=== PATIENT | female | born 1995 | race Two or more races ===

== ENCOUNTER 2018-05-15 16:07 | Emergency (ER) | payer SELFPAY ==
[~2018-05-15] VITALS: Ht 160 cm; Wt 77.6 kg
--- NOTE | 2018-05-15 17:26 | PHYS DOC ---
Past Medical History Past Medical History: No Pertinent History Past Surgical History: No Surgical History Alcohol Use: None Drug Use: None Adult General Chief Complaint Chief Complaint: VAGINAL BLEEDING HPI HPI Patient is a 22 year old female who presents to the ER with complaints of vaginal bleeding for the last hour and a half. She states she is currently , , her LMP was 02/15/18. Pt is unsure of when her due date is, she has not had an ultrasound by her OB yet. She had her first OB appointment last week. She denies any fever, nausea, vomiting, abdominal pain, back pain, dysuria, hematuria, or irregular vaginal discharge prior to the onset of bleeding. She denies any pain at this time. Review of Systems Review of Systems Constitutional: Denies fever or chills [] GI: Denies abdominal pain, nausea, vomiting, or diarrhea [] : Denies dysuria or hematuria [] Musculoskeletal: Denies back pain or joint pain [] Integument: Denies rash or skin lesions [] Neurologic: Denies headache, focal weakness or sensory changes [] Endocrine: Denies polyuria or polydipsia [] All other systems were reviewed and found to be within normal limits, except as documented in this note. Allergies Allergies Allergies Coded Allergies Type Severity Reaction Last Updated Verified Penicillins Allergy Intermediate HIVES 05/15/18 Yes Physical Exam Physical Exam Constitutional: Well developed, well nourished, no acute distress, non-toxic appearance. [] HENT: Normocephalic, atraumatic, bilateral external ears normal, oropharynx moist, no oral exudates, nose normal. [] Eyes: PERRLA, conjunctiva normal, no discharge. [] Pelvic Exam: Configuration Consultant present Fauna YULIYA Abdomen: Nontender External Genitalia: Normal Skin Speculum: Normal vaginal mucosa; small amount of bloody cervical discharge , no clots, OS closed Skin: Warm, dry, no erythema, no rash. [] Extremities: No cyanosis, no clubbing, ROM intact, no edema. [] Neurologic: Alert and oriented X 3, normal motor function, normal sensory function, no focal deficits noted. [] Psychologic: Affect normal, judgement normal, mood normal. [] Current Patient Data Vital Signs Vital Signs Date Time Temp Pulse Resp B/P (MAP) Pulse Ox O2 Delivery O2 Flow Rate FiO2 05/15/18 21:27 102 33 119/65 (83) 100 Room Air 05/15/18 16:20 98.4 98.4 Lab Values Laboratory Tests Test 05/15/18 17:01 Urine Collection Type Unknown Urine Color Yellow Urine Clarity Cloudy Urine pH 5.5 Urine Specific Critz 1.025 Urine Protein 30 mg/dL (NEG-TRACE) Urine Glucose (UA) Negative mg/dL (NEG) Urine Ketones (Stick) 40 mg/dL (NEG) Urine Blood Large (NEG) Urine Nitrite Negative (NEG) Urine Bilirubin Negative (NEG) Urine Urobilinogen Dipstick 0.2 mg/dL (0.2 mg/dL) Urine Leukocyte Esterase Moderate (NEG) Urine RBC Tntc /HPF (0-2) Urine WBC 5-10 /HPF (0-4) Urine Squamous Epithelial Cells Mod /LPF Urine Bacteria Moderate /HPF (0-FEW) EKG EKG [] Radiology/Procedures Radiology/Procedures PROCEDURE: PREG 1ST TRIMESTER CLINICAL HISTORY: VAGINAL BLEEDING X'S 1 DAY. PT DENIES HAVING ANY PELVIC/ABDOMINAL PAIN. LMP-02/15/2018. G1,P0. COMPARISON: None available. TECHNIQUE: transabdominal sonography was performed using grayscale and B-mode imaging FINDINGS: An intrauterine gestational sac is present. An embryo is identified .Cardiac activity is visualized and documented at a normal rate (100-180 beats per minute). There is no subchorionic fluid collection. Based on a crown rump length averaging 6.5 cm, the estimated gestational age is 12 weeks, 6 days. Estimated date of delivery by ultrasound is 11/21/2018. The ovaries were not seen. There is no pelvic free fluid. IMPRESSION: Single live intrauterine gestation with mean sonographic age of 12 weeks,6 days. The estimated date of delivery is 11/21/2018. [] Course & Med Decision Making Course & Med Decision Making Pertinent Labs and Imaging studies reviewed. (See chart for details) Dx: Vaginal bleeding in PT was advised of US report. Pelvic rest, no intercourse or inserting anything into the vagina until follow up with your OBGyn. Call to schedule an appointment for next week. Return to ER if symptoms worsen. Patient's and Patient verbalized an understanding of home care, medications, follow-up, and return to ED instructions and were in agreement with the plan of care. [] Dragon Disclaimer Dragon Disclaimer This electronic medical record was generated, in whole or in part, using a voice recognition dictation system. Departure Departure Impression: Primary Impression: Vaginal bleeding before 22 weeks gestation Additional Impression: Threatened miscarriage in early Disposition: 01 HOME, SELF-CARE Condition: STABLE Referrals: UNKNOWN PCP NAME (PCP) Patient Instructions: Threatened Miscarriage, [id number], Vaginal Bleeding During , First Trimester Additional Instructions: Pelvic rest, no intercourse or inserting anything into the vagina until follow up with your OBGyn. Call to schedule an appointment for next week. Return to ER if symptoms worsen. Problem Qualifiers JAMEEL CR CAT SCANNER OPERATOR May 15, 2018 17:26
[2018-05-15 17:42] LABS: BILIRUBIN,URINE NEGATIVE (NEG); CLARITY,URINE CLOUDY; COLOR,URINE YELLOW; NITRITE,URINE NEGATIVE (NEG); PH,URINE 5.5; PROTEIN,URINE 30 mg/dL (NEG-TRACE); UROBILINOGEN,URINE 0.2 mg/dL (0.2 mg/dL)
[2018-05-15 17:50] LABS: BACTERIA,URINE MODERATE /HPF (0-FEW); RBC,URINE TNTC /HPF (0-2); SQUAMOUS EPITHELIAL CELL,UR MOD /LPF
--- NOTE | 2018-05-15 19:16 | RAD ---
CLINICAL HISTORY: VAGINAL BLEEDING X'S 1 DAY. PT DENIES HAVING ANY PELVIC/ABDOMINAL PAIN. LMP-02/15/2018. G1,P0. COMPARISON: None available. TECHNIQUE: transabdominal sonography was performed using grayscale and B-mode imaging FINDINGS: An intrauterine gestational sac is present. An embryo is identified .Cardiac activity is visualized and documented at a normal rate (100-180 beats per minute). There is no subchorionic fluid collection. Based on a crown rump length averaging 6.5 cm, the estimated gestational age is 12 weeks, 6 days. Estimated date of delivery by ultrasound is 11/21/2018. The ovaries were not seen. There is no pelvic free fluid. IMPRESSION: Single live intrauterine gestation with mean sonographic age of 12 weeks,6 days. The estimated date of delivery is 11/21/2018. Electronically signed by: Alexis Miller MD (05/15/2018 7:13 PM) [facility]
[2018-05-15 21:27] VITALS: BP 119/65
== END 2018-05-15 21:26 | disposition home or self-care (01) ==
LOC: ER 16:07
DX: O20.0 Threatened abortion (principal); Z88.0 Allergy status to penicillin; Z3A.12 12 weeks gestation of pregnancy
CPT/HCPCS: 36415; 76801; 81001; 86901; 99285-25